=== PATIENT | male | born 1985 | race Caucasian/White ===

== ENCOUNTER 2017-06-30 21:28 | Emergency (ER) | payer MEDICAID ==
[2017-06-30 22:03] LABS: % BASOPHILS 0.1 % (0.0-2.0); % EOSINOPHILS 1.6 % (0.0-5.0); % LYMPHOCYTES 26.4 % (20.0-50.0); % MONOCYTES 7.6 % (2.0-10.0); % NEUTROPHILS 64.3 % (40.0-80.0); EOSINOPHILE ABSOLUTE 0.2 Th/cmm (0.1-0.4); HEMATOCRIT 43.9 % (41.0-60); HEMOGLOBIN 14.7 gm/dL (12-16); LYMPHOCYTE ABSOLUTE 2.7 Th/cmm (1.5-3.0); MEAN CELL VOLUME 83.8 fl (80-99); MEAN CORPUSCULAR HEMOGLOBIN 28.1 pg (26.0-30.0); MEAN CORPUSCULAR HGB CONC 33.6 pg (28.0-36.0); MEAN PLATELET VOLUME 7.8 fl; MONOCYTE ABSOLUTE 0.8 Th/cmm (0.3-1.0); NEUTROPHILE ABSOLUTE 6.7 Th/cmm (1.8-8.0); PLATELET COUNT 310 Th/cmm (150-400); RED BLOOD COUNT 5.25 Mil/cmm (4.30-5.70); RED CELL DISTRIBUTION WIDTH 13.7 % (11.5-20.0); WHITE BLOOD COUNT 10.4 Th/cmm (4.8-10.8)
[2017-06-30 22:20] LABS: ALB/GLOB RATIO 1.6 (1.0-1.8); ALBUMIN 4.4 gm/dL (4.2-5.5); ALKALINE PHOSPHATASE 69 U/L (34-104); ANION GAP 10.3 (7.0-16.0); BILIRUBIN,TOTAL 0.3 mg/dL (0.3-1.0); BUN - UREA NITROGEN 23 mg/dL (7-25); CALCIUM SERUM 9.1 mg/dL (8.6-10.3); CARBON DIOXIDE 26.4 mEq/L (21.0-31.0); CHLORIDE 105 mEq/L (98-107); CREATININE - SERUM 0.9 mg/dL (0.7-1.3); GFR AFRICAN-AMERICAN > 60.0 ml/min (>90); GFR NON AFRICAN-AMERICAN > 60.0 ml/min; GLUCOSE 111 mg/dL (70-105); POTASSIUM SERUM 3.7 mEq/L (3.5-5.1); SGOT 23 U/L (13-39); SGPT/ALT 30 U/L (7-52); SODIUM SERUM 138 mEq/L (136-145); TOTAL PROTEIN,SERUM 7.2 gm/dL (6.0-8.3)
[2017-06-30 22:20] LABS: URINE MICROSCOPIC INDICATED? YES; URINE SOURCE CLEAN C
[2017-06-30 22:36] LABS: URINE BILIRUBIN NEGATIVE (NEGATIVE); URINE BLOOD NEGATIVE (NEGATIVE); URINE GLUCOSE (UA) NEGATIVE (NEGATIVE); URINE KETONE NEGATIVE (NEGATIVE); URINE LEUKOCYTE ESTERASE NEGATIVE (NEGATIVE); URINE NITRATE NEGATIVE (NEGATIVE); URINE PROTEIN NEGATIVE (NEGATIVE); URINE UROBILINOGEN 0.2 E.U./dL (0.2 - 1.0)
[2017-06-30] MEDS ORDERED: IOHEXOL 300mgI/mL 100 ML VIAL ONE (22:37)
[2017-06-30 22:42] LABS: AMPHETAMINE URINE NEGATIVE (NEGATIVE); BARBITURATES URINE NEGATIVE (NEGATIVE); BENZODIAZEPINES QUAL URINE NEGATIVE (NEGATIVE); CANNABINOID THC NEGATIVE (NEGATIVE); COCAINE METABOLITE QUAL URINE NEGATIVE (NEGATIVE); METHADONE URINE NEGATIVE (NEGATIVE); METHAMPHETAMINES QUAL URINE NEGATIVE (NEGATIVE); OPIATES (MORPHINE) QUAL. URINE NEGATIVE (NEGATIVE); PHENCYCLIDINE (PCP) URINE NEGATIVE (NEGATIVE); TRICYCLICS (TCA) QUAL. URINE NEGATIVE (NEGATIVE)
[2017-06-30 23:14] LABS: URINE CLARITY CLEAR (CLEAR); URINE COLOR YELLOW
[2017-06-30 23:15] LABS: URINE BACTERIA NONE SEEN /hpf (NONE SEEN); URINE EPITHELIAL CELLS RARE /lpf (FEW); URINE RBC 0-2 /hpf (0-5); URINE WBC 0-2 /hpf (0-5)
[2017-07-01] MEDS ORDERED: cefTRIAXone 1 GM in Sodium Chloride 0.9% 50 ML IV ONE (00:17)
--- NOTE | 2017-07-01 00:23 | ED Physician Chart ---
ED Chief Complaint/HPI - Patient Information Date Seen:: 07/01/17 Time Seen:: 00:18 Chief Complaint:: ABDOMINAL PAIN History of Present Illness:: THIS IS A 31 YO OBESE MALE WITH GENERALIZE ABDOMINAL PAIN AND NAUSEA BUT NO VOMITING. HE DENIES HAVING ANY PREVIOUS SURGERY AND DENIES HAVING RENAL STONES. HE HAS NOT ANY SURGERY IN THE PAST. HE DENIES HAVING ANY FEVER OR PAINFUL URINATION. Allergies:: Allergies Allergy/AdvReac Type Severity Reaction Status Date / Time No Known Allergies Allergy Verified 06/30/17 22:21 Vitals:: Vital Signs - 8 hr 06/30/17 21:30 Temp 98.3 F HR 79 RR 17 BP 144/87 O2 Sat % 96 Historian:: Patient Review:: Nurse's Note Reviewed ED Review of Systems - Review of Systems General/Constitutional: No fever, No chills, No weight loss, No weakness, No diaphoresis, No edema, No loss of appetite Skin: No skin lesions, No rash, No bruising Head: No headache, No light-headedness Eyes: No loss of vision, No pain, No diplopia ENT: No earache, No nasal drainage, No sore throat, No tinnitus Neck: No neck pain, No swelling, No thyromegaly, No stiffness, No mass noted Cardio Vascular: No chest pain, No palpitations, No PND, No orthopnea, No edema Pulmonary: No SOB, No cough, No sputum, No wheezing GI: Nausea, No vomiting, No diarrhea, Pain (GENERALIZED), No melena, No hematochezia, No constipation, No hematemesis G/U: No dysuria, No frequency, No hematuria Musculoskeletal: No bone or joint pain, No back pain, No muscle pain Endocrine: No polyuria, No polydipsia Psychiatric: No prior psych history, No depression, No anxiety, No suicidal ideation Hematopoietic: No bruising, No lymphadenopathy Allergic/Immuno: No urticaria, No angioedema Neurological: No syncope, No focal symptoms, No weakness, No paresthesia, No headache, No seizure, No dizziness, No confusion, No vertigo ED Past Medical History - Past Medical History Obtainable: Yes Past Medical History: No significant medical hx Family History: None Social History: Non Smoker, No Alcohol, No Drug Use, Employed Surgical History: None Psychiatricy History: None Medication: Reviewed Family Medical History - Family Member Mother History Unknown: Yes ED Physical Exam - Physical Examination General/Constitutional: Awake, Well-developed, well-nourished, Alert, No distress, GCS 15, Non-toxic appearing, Ambulatory Head: Atraumatic Eyes: Lids, conjuctiva normal, PERRL, EOMI Skin: Nl inspection, No rash, No skin lesions, No ecchymosis, Well hydrated, No lymphadenopathy ENMT: External ears, nose nl, Nasal exam nl, Lips, teeth, gums nl Neck: Nontender, Full ROM w/o pain, No JVD, No nuchal rigidity, No bruit, No mass, No stridor Respiratory: Nl effort/Exclusion, Clear to Auscultation, No Wheeze/Rhonchi/Rales Cardio Vascular: RRR, No murmur, gallop, rubs, NL S1 S2 GI: No tenderness/rebounding/guarding (GENERALIZE TENDERNESS WITH REBOUND), No organomegaly, No hernia, Normal BS's, Nondistended, No mass/bruits, No McBurney tenderness : No CVA tenderness Extremities: No tenderness or effusion, Full ROM, normal strength in all extremities, No edema, Normal digits & nails Neuro/Psych: Alert/oriented, DTR's symmetric, Normal sensory exam, Normal motor strength, Judgement/insight normal, Mood normal, Normal gait, No focal deficits Misc: Normal back, No paraspinal tenderness ED Labs/Radiology/EKG Results - Lab Results Results: Laboratory Tests 06/30/17 06/30/17 06/30/17 21:27 21:27 21:27 WBC 10.4 RBC 5.25 Hgb 14.7 Hct 43.9 MCV 83.8 MCH 28.1 MCHC Differential 33.6 RDW 13.7 Plt Count 310 MPV 7.8 Neutrophils % 64.3 Lymphocytes % 26.4 Monocytes % 7.6 Eosinophils % 1.6 Basophils % 0.1 Sodium 138 Potassium 3.7 Chloride 105 Carbon Dioxide 26.4 Anion Gap 10.3 BUN 23 Creatinine 0.9 Est GFR ( Amer) > 60.0 Est GFR (Non-Af Amer) > 60.0 BUN/Creatinine Ratio 25.6 Glucose 111 H Calcium 9.1 Total Bilirubin 0.3 AST 23 ALT 30 Alkaline Phosphatase 69 Troponin I < 0.01 L Total Protein 7.2 Albumin 4.4 Globulin 2.8 Albumin/Globulin Ratio 1.6 Amylase Urine Source Urine Color Urine Clarity Urine pH Ur Specific [place] Urine Protein Urine Glucose (UA) Urine Ketones Urine Blood Urine Nitrate Urine Bilirubin Urine Urobilinogen Ur Leukocyte Esterase Urine RBC Urine WBC Ur Epithelial Cells Urine Bacteria Urine Opiates Screen Urine Methadone Screen Ur Barbiturates Screen Ur Tricyclics Screen Ur Phencyclidine Scrn Amphetamines Screen U Methamphetamines Scrn U Benzodiazepines Scrn U Cocaine Metab Screen U Cannabinoids Screen 06/30/17 06/30/17 06/30/17 21:57 22:00 22:00 WBC RBC Hgb Hct MCV MCH MCHC Differential RDW Plt Count MPV Neutrophils % Lymphocytes % Monocytes % Eosinophils % Basophils % Sodium Potassium Chloride Carbon Dioxide Anion Gap BUN Creatinine Est GFR ( Amer) Est GFR (Non-Af Amer) BUN/Creatinine Ratio Glucose Calcium Total Bilirubin AST ALT Alkaline Phosphatase Troponin I Total Protein Albumin Globulin Albumin/Globulin Ratio Amylase 30 Urine Source CLEAN C Urine Color YELLOW Urine Clarity CLEAR Urine pH 6.0 Ur Specific [place] 1.025 Urine Protein NEGATIVE Urine Glucose (UA) NEGATIVE Urine Ketones NEGATIVE Urine Blood NEGATIVE Urine Nitrate NEGATIVE Urine Bilirubin NEGATIVE Urine Urobilinogen 0.2 Ur Leukocyte Esterase NEGATIVE Urine RBC 0-2 H Urine WBC 0-2 Ur Epithelial Cells RARE Urine Bacteria NONE SEEN Urine Opiates Screen NEGATIVE Urine Methadone Screen NEGATIVE Ur Barbiturates Screen NEGATIVE Ur Tricyclics Screen NEGATIVE Ur Phencyclidine Scrn NEGATIVE Amphetamines Screen NEGATIVE U Methamphetamines Scrn NEGATIVE U Benzodiazepines Scrn NEGATIVE U Cocaine Metab Screen NEGATIVE U Cannabinoids Screen NEGATIVE - Radiology Results Results: CT SCAN = GALLSTONES AND UMBILICAL HERNIA ED Assessment - Assessment General Assessment: GALLSTONES ED Septic Shock - . Is Septic Shock (SBP<90, OR Lactate>4 mmol\L) present?: No - <6hrs of presentation: Vital Signs: Vital Signs - 8 hr 06/30/17 21:30 Temp 98.3 F HR 79 RR 17 BP 144/87 O2 Sat % 96 ED Reassessment (Disposition) - Reassessment Reassessment Condition:: Improved - Diagnosis Diagnosis:: GALLSTONES - Aftercare/Follow up Instructions Aftercare/Follow-Up Instructions:: Counseled pt regarding lab results/diagnosis & need follow up, Refer to Discharge Instructions, Counseled pt & family regarding lab results/diagnosis & need follow up - Patient Disposition Discharge/Transfer:: Home Condition at Disposition:: Improved ED Discharge Plan - Patient Disposition Admit/Discharge/Transfer: PT DISCHARGED HOME Condition at Disposition: Improved Additional Instructions: SEE YOUR PMD FOR A SURGERY CONSULT TO HAVE THE GALLBLADDER REMOVED.
--- NOTE | 2017-07-01 10:40 | Diagnostic Imaging Report ---
Exam: CT examination of the pelvis HISTORY: Abdominal pain Total DLP equals 994 CTDI equals 18.1 Findings: Multiple contiguous thin section of the abdomen pelvis obtained from lower thorax to pubic symphysis with administration intravenous contrast material no prior studies available comparison. The study demonstrates normal appearance of the liver and spleen. The pancreas is intact. The gallbladder is distended, there is evidence for cholelithiasis.. The kidneys concentrate and excrete contrast material normal fashion. No free fluid is noted. The appendix is intact. The bowel gas to be nonspecific. No abnormal adenopathy is noted. The urinary bladder is intact. There is no evidence of diverticular disease of diverticulitis. There is evidence for a large amount of fecal content most likely in the distal ileum. Bony structures demonstrate no evidence for lytic or blastic changes. IMPRESSION: Cholelithiasis, distended gallbladder Large amount of fecal content in the distal small bowel most likely distal ileum clinical correlation recommended.
[2017-07-01 18:14] LABS: A1C % 5.6 % (4.0-6.0)
== END 2017-07-01 00:55 | disposition home or self-care (01) ==
LOC: ER 21:28
DX: K80.80 Other cholelithiasis without obstruction (principal)
CPT/HCPCS: 99285; 96365; 96375; 74177; 84484; 36415; 80307; 85025; 81001; 82150; 83036; 80053; J1885; J0696; Q9967

== ENCOUNTER 2017-07-24 01:11 | Emergency (ER) | payer MEDICAID ==
[2017-07-24 01:50] LABS: % BASOPHILS 1.5 % (0.0-2.0); % LYMPHOCYTES 27.7 % (20.0-50.0); % MONOCYTES 7.9 % (2.0-10.0); % NEUTROPHILS 59.9 % (40.0-80.0); BASOPHILE ABSOLUTE 0.1 Th/cumm (0-0.2); EOSINOPHILE ABSOLUTE 0.3 Th/cmm (0.1-0.4); HEMATOCRIT 42.6 % (41.0-60); HEMOGLOBIN 14.5 gm/dL (12-16); LYMPHOCYTE ABSOLUTE 2.7 Th/cmm (1.5-3.0); MEAN CELL VOLUME 83.5 fl (80-99); MEAN CORPUSCULAR HEMOGLOBIN 28.4 pg (26.0-30.0); MEAN PLATELET VOLUME 7.6 fl; MONOCYTE ABSOLUTE 0.8 Th/cmm (0.3-1.0); NEUTROPHILE ABSOLUTE 5.9 Th/cmm (1.8-8.0); PLATELET COUNT 315 Th/cmm (150-400); RED CELL DISTRIBUTION WIDTH 13.8 % (11.5-20.0); WHITE BLOOD COUNT 9.8 Th/cmm (4.8-10.8)
[2017-07-24 02:07] LABS: ALB/GLOB RATIO 1.6 (1.0-1.8); ALBUMIN 4.2 gm/dL (4.2-5.5); ALKALINE PHOSPHATASE 58 U/L (34-104); ANION GAP 11.2 (7.0-16.0); BILIRUBIN,TOTAL 0.3 mg/dL (0.3-1.0); BUN - UREA NITROGEN 26 mg/dL (7-25); CALCIUM SERUM 9.6 mg/dL (8.6-10.3); CARBON DIOXIDE 26.5 mEq/L (21.0-31.0); CHLORIDE 102 mEq/L (98-107); CREATININE - SERUM 1.1 mg/dL (0.7-1.3); GFR AFRICAN-AMERICAN > 60.0 ml/min (>90); GFR NON AFRICAN-AMERICAN > 60.0 ml/min; GLUCOSE 149 mg/dL (70-105); POTASSIUM SERUM 3.7 mEq/L (3.5-5.1); SGOT 20 U/L (13-39); SGPT/ALT 33 U/L (7-52); SODIUM SERUM 136 mEq/L (136-145); TOTAL PROTEIN,SERUM 6.9 gm/dL (6.0-8.3)
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
== END 2017-07-24 03:22 | disposition home or self-care (01) ==
LOC: ER 01:11
DX: R10.9 Unspecified abdominal pain (principal)
CPT/HCPCS: 99284; 96365; 96375; 36415; 85025; 80053; C9113; J0696; Z7502

== ENCOUNTER 2017-07-24 05:49 | Emergency (ER) | payer MEDICAID | END 2017-07-24 06:30 | disposition left against medical advice (07) | LOC: ER 05:49 | DX: R10.9 Unspecified abdominal pain (principal); Z53.21 Procedure and treatment not carried out due to patient leaving prior to being seen by health care provider ==